=== PATIENT | male | born 1940 | race Caucasian/White ===

== ENCOUNTER 2018-12-23 10:19 | Outpatient (RCR) | payer MEDICARE, OTHER | END 2019-03-23 | disposition home or self-care (01) | LOC: ONC 10:19 | PROVIDERS: ATTEND Radiology Radiation Oncology | DX: C61 Malignant neoplasm of prostate (principal) | CPT/HCPCS: 76873; 99205 ==

== ENCOUNTER 2019-06-23 06:00 | Outpatient (CLI) | payer MEDICARE, OTHER ==
[~2019-06-23] VITALS: Ht 167.7 cm; Wt 92.3 kg
[2019-06-23] MEDS ORDERED: METF-399 PO (14:35)
[2019-06-23] MEDS ORDERED: CYAN-41 PO (14:35)
== END 2019-06-23 14:36 | disposition home or self-care (01) ==
LOC: PREOP 06:00
PROVIDERS: ATTEND Radiology Radiation Oncology
DX: Z01.818 Encounter for other preprocedural examination (principal)

== ENCOUNTER 2019-06-30 10:46 | Day surgery (SDC) | payer MEDICARE, BC ==
[~2019-06-30] VITALS: Ht 167.7 cm; Wt 92.3 kg
[2019-06-30] VITALS (10 sets, daily range): BP systolic 59–170; BP diastolic 20–110
[~2019-06-30 10:46] MED LIST: CYAN-41 PO; METF-399 PO
--- NOTE | 2019-06-30 11:04 | Progress Note-Pre Operative ---
Pre-Operative Progress Note H&P Reviewed The H&P was reviewed, patient examined and no changes noted. Date Seen by Provider: Jun 30, 2019 Time Seen by Provider: 11:04 Date H&P Reviewed: Jun 30, 2019 Time H&P Reviewed: 11:04 Pre-Operative Diagnosis: Prostate cancer cT1c, PSA 7.7, [place] 7 (3+4) VIRGIL GARCIA MD Jun 30, 2019 11:04
--- NOTE | 2019-06-30 11:07 | Discharge Inst-Simple/Standard ---
Discharge Inst-Standard Discharge Medications New, Converted or Re-Newed RX: Other (continue Cipro as instructed from radiation oncology ) Patient Instructions/Follow Up Plan of Care/Instructions/FU: 1)Treatment planning ct simulation at [facility] cancer center 07/14/19 at 9:00 a.m. --- arrive 8:30 a.m. to drink oral contrast Activity as Tolerated: Yes Discharge Diet: No Restrictions VIRGIL GARCIA MD Jun 30, 2019 11:07
[2019-06-30] MEDS ORDERED: LEVOFLOXACIN 500 MG/100 ML IV 100 ML IV ONE (11:45)
[2019-06-30] MEDS ORDERED: LATA7.5D OU (12:35)
[2019-06-30] MEDS ORDERED: ASPI-586 PO (12:35)
[2019-06-30] MEDS ORDERED: VITAMIN D3 PO (12:35)
[2019-06-30] MEDS ORDERED: METF-397 PO (12:36)
[2019-06-30] MEDS: LACTATED RINGERS 1,000 ML IV PRN ×2 (12:54→15:17)
[2019-06-30] MEDS ORDERED: ONDANSETRON 4 MG/2 ML (SDV) Z0FRAN ONE (14:17)
[2019-06-30] MEDS ORDERED: fentaNYL INJECTION 100 MCG/2 ML AMP ONE (14:17)
[2019-06-30] MEDS ORDERED: proPOfol 200 MG/20 ML (DIPRIVAN) VIAL IV ONE (14:17)
[2019-06-30] MEDS ORDERED: LIDOCAINE PF 2% 5 ML (XYLOCAINE) VIAL ONE (14:17)
[2019-06-30] MEDS ORDERED: SEVOFLURANE (ULTANE) 15 ML INHAL SOLN ONE (14:39)
[2019-06-30] MEDS ORDERED: ONDANSETRON 4 MG/2 ML (SDV) Z0FRAN IVP PRN (15:30)
[2019-06-30] MEDS ORDERED: MEPERIDINE (DEMEROL) INJ 50 MG/ML IVP ONE (15:30)
[2019-06-30] MEDS ORDERED: LABETALOL HCL 100 MG/20 ML VIAL IV PRN (15:30)
[2019-06-30] MEDS ORDERED: morphine INJ 10 MG/ML 1ML (SYR OR VIAL) IVP ONE (15:30)
[2019-06-30] MEDS ORDERED: morphine INJ 10 MG/ML 1ML (SYR OR VIAL) ONE (15:31)
[2019-06-30] MEDS ORDERED: hydrALAZINE (APESOLINE) 20 MG/ML VIAL ONE (15:34)
[2019-06-30] MEDS ORDERED: hydrALAZINE (APESOLINE) 20 MG/ML VIAL IV PRN (15:45)
--- NOTE | 2019-06-30 15:55 | Progress Note-Post Operative ---
Post-Operative Progess Note Surgeon (s)/Cutter And Edge Trimmer (s) Surgeon Gilson PENNINGTON MD Cutter And Edge Trimmer: VIRGIL GARCIA MD Pre-Operative Diagnosis Prostate cancer cT1c, PSA 7.7, [place] 7 (3+4) Post-Operative Diagnosis Same as pre-op Procedure & Operative Findings Date of Procedure 06/30/19 Procedure Performed/Findings (1) Placement of fiducial gold seed markers (2) Injection of biodegradable hydrogel prostate-rectal spacer utilizing the SpaceOAR system Anesthesia Type General Estimated Blood Loss Estimated blood loss (mL): None Specimens/Packing Specimens Removed None Packing: None VIRGIL GARCIA MD Jun 30, 2019 15:55
--- NOTE | 2019-06-30 17:20 | NUR ---
HAS BEEN ALERT, CHEERFUL AND HAS DENIED PAIN THROUGHOUT RECOVERY. NO BLEEDING OR SWELLING AT PERINEUM. UP WITH ASSIST TO BR AND VOIDED WITHOUT PROBLEM, URINE CLEAR, YELLOW. GAIT STEADY. REQUESTING DISMISSAL.
== END 2019-06-30 17:20 | disposition home or self-care (01) ==
LOC: SDC 10:46
PROVIDERS: ATTEND Radiology Radiation Oncology
DX: C61 Malignant neoplasm of prostate (principal); Z11.2 Encounter for screening for other bacterial diseases; E11.9 Type 2 diabetes mellitus without complications; E78.00 Pure hypercholesterolemia, unspecified; H40.9 Unspecified glaucoma; F17.220 Nicotine dependence, chewing tobacco, uncomplicated; Z79.82 Long term (current) use of aspirin; Z79.899 Other long term (current) drug therapy; Z79.84 Long term (current) use of oral hypoglycemic drugs; E66.9 Obesity, unspecified; Z68.32 Body mass index [BMI] 32.0-32.9, adult
CPT/HCPCS: 82962; 87081

== ENCOUNTER 2019-07-14 08:23 | Outpatient (RCR) | payer MEDICARE, OTHER ==
[2019-04-20 14:56] LABS: BILIRUBIN,URINE NEGATIVE (NEGATIVE); CLARITY,URINE CLEAR; COLOR,URINE YELLOW; GLUCOSE, URINE (UA) NEGATIVE (NEGATIVE); KETONES,URINE NEGATIVE (NEGATIVE); LEUKOCYTE ESTERASE ,URINE NEGATIVE (NEGATIVE); NITRITE,URINE NEGATIVE (NEGATIVE); PH,URINE 5 (5-9); PROTEIN,URINE NEGATIVE (NEGATIVE)
[2019-04-20 15:03] LABS: BACTERIA,URINE NEGATIVE /HPF
[~2019-07-14 08:23] MED LIST changes: +ASPI-586 PO; +LATA7.5D OU; +METF-397 PO; +VITAMIN D3 PO
== END 2019-07-19 | disposition home or self-care (01) ==
LOC: ONC 08:23
PROVIDERS: ATTEND Radiology Radiation Oncology
DX: Z51.0 Encounter for antineoplastic radiation therapy (principal); C61 Malignant neoplasm of prostate
CPT/HCPCS: 76873; 77334; 81000

== ENCOUNTER 2019-09-29 08:08 | Outpatient (RCR) | payer MEDICARE, OTHER | END 2019-10-19 | disposition home or self-care (01) | LOC: ONC 08:08 | PROVIDERS: ATTEND Radiology Radiation Oncology | DX: Z51.0 Encounter for antineoplastic radiation therapy (principal); C61 Malignant neoplasm of prostate | CPT/HCPCS: 77300; 77301; 77336; 77338; 77385 ==

== ENCOUNTER → 2020-02-09 | Outpatient (CLI) | payer MEDICARE, OTHER | LOC: EDSTATUS 10-20 10:42 → ONC 09:12 | PROVIDERS: ATTEND Radiology Radiation Oncology | DX: C61 Malignant neoplasm of prostate (principal) | CPT/HCPCS: 84153; 99212 ==

== ENCOUNTER → 2020-07-11 | Outpatient (CLI) | payer MEDICARE, BC | LOC: ONC 10:52 | PROVIDERS: ATTEND Radiology Radiation Oncology | DX: C61 Malignant neoplasm of prostate (principal) | CPT/HCPCS: 84153 ==

== ENCOUNTER → 2021-01-08 | Outpatient (CLI) | payer MEDICARE, BC | LOC: ONC 10:56 | PROVIDERS: ATTEND Radiology Radiation Oncology | DX: C61 Malignant neoplasm of prostate (principal) | CPT/HCPCS: 84153 ==

== ENCOUNTER → 2021-07-10 | Outpatient (CLI) | payer MEDICARE, BC | LOC: ONC 11:03 | PROVIDERS: ATTEND Radiology Radiation Oncology | DX: C61 Malignant neoplasm of prostate (principal) | CPT/HCPCS: 84153 ==

== ENCOUNTER 2022-01-08 09:35 | Outpatient (RCR) | payer MEDICARE, BC | END 2022-01-19 | disposition home or self-care (01) | LOC: ONC 09:35 | PROVIDERS: ATTEND Radiology Radiation Oncology | DX: C61 Malignant neoplasm of prostate (principal) | CPT/HCPCS: 84153 ==

== ENCOUNTER 2022-07-09 09:21 | Outpatient (RCR) | payer MEDICARE, BC | END 2022-07-22 | disposition home or self-care (01) | LOC: ONC 09:21 | PROVIDERS: ATTEND Radiology Radiation Oncology | DX: C61 Malignant neoplasm of prostate (principal); Z12.5 Encounter for screening for malignant neoplasm of prostate | CPT/HCPCS: 36415; 84153 ==

== ENCOUNTER 2023-01-07 09:20 | Outpatient (RCR) | payer MEDICARE, BC | END 2023-01-19 | disposition home or self-care (01) | LOC: ONC 09:20 | PROVIDERS: ATTEND Radiology Radiation Oncology | DX: C61 Malignant neoplasm of prostate (principal) | CPT/HCPCS: 36415; 84153 ==

== ENCOUNTER 2023-07-08 09:17 | Outpatient (RCR) | payer BC, MEDICARE | END 2023-07-22 | disposition home or self-care (01) | LOC: ONC 09:17 | PROVIDERS: ATTEND Radiology Radiation Oncology | DX: C61 Malignant neoplasm of prostate (principal) | CPT/HCPCS: 36415; 84153 ==